=== PATIENT | female | born 1955 | race Caucasian/White ===

== ENCOUNTER 2016-10-14 08:18 | Day surgery (SDC) | payer OTHER ==
[~2016-10-14] VITALS: Ht 162.6 cm; Wt 68.0 kg
[~2016-10-14 08:18] MED LIST: 0.9% Sodium Chloride 1,000 ML IV SCH; ALBU8.5H2 INHALATION; ASPI-973 PO; ATEN25TA PO; CALC-243 PO; CHOL100043 PO; CITA40TA13 PO; DESO15CR25 TOPICAL; FENO160T14 PO; KETACONAZOLE TOPICAL; LOSA25TA21 PO; LOVA40TA PO; MIRA50TA PO; MULT-1018 PO; OMEG-38 PO; SYMINH INHALATION; Sodium Chloride LOK Flush 10 mL Syringe IV PRN; TIOT18CA3 IH; UBID100C PO; fentaNYL-PF 50 mCg/mL 2 mL Inj IVPUSH PRN
[2016-10-14 08:31] VITALS: BP 116/83; PULSE 100; RESP 17; O2SAT 94
[2016-10-14] MEDS ORDERED: fentaNYL-PF 50 mCg/mL 2 mL Inj ONE (08:48)
[2016-10-14] MEDS ORDERED: Lactated Ringer's 1,000 ML IV ONE (08:49)
[2016-10-14] MEDS ORDERED: 0.9% Sodium Chloride 1,000 ML ONE (08:49)
[2016-10-14] MEDS ORDERED: Sodium Chloride LOK Flush 10 mL Syringe IV PRN (09:05)
[2016-10-14] MEDS ORDERED: fentaNYL-PF 50 mCg/mL 2 mL Inj IVPUSH PRN (09:05)
[2016-10-14] MEDS ORDERED: 0.9% Sodium Chloride 1,000 ML IV PRN (09:05)
[2016-10-14 09:34] VITALS: BP 117/71; PULSE 83; RESP 14; O2SAT 93
[2016-10-14 09:44] VITALS: BP 105/70; PULSE 81; RESP 14; O2SAT 93
--- NOTE | 2016-10-14 09:49 | ENDO ---
[address] [address] ENDOSCOPY PROCEDURE PATIENT: LUIS GREGORY : 1955 MR#: [id number] ADMIT: 10/14/2016 JOB ID: [id number] DATE: 10/14/2016 PREOPERATIVE DIAGNOSIS(ES): Rectal bleeding. POSTOPERATIVE DIAGNOSIS(ES): 1. Pedunculated cecal polyp. 2. A 2-3 mm ascending colon polyp. 3. A 1-2 mm sigmoid colon polyp. 4. Localized diverticulosis to hepatic flexure. PROCEDURE: Colonoscopy to cecum with snare polypectomy with cautery and cold forceps polypectomy x2. SURGEON: Chago Augustine MD. INDICATIONS: A 61-year-old female with rectal bleeding has elected to proceed with a colonoscopy. FINDINGS: She had a good prep. The scope was advanced to the cecum. It was withdrawn over 9 minutes 51 seconds. In the cecum, a pedunculated polyp measuring 6-7 mm was identified. It was removed completely taking the stalk and retrieved. In the ascending colon was a 2-3 mm polyp removed with cold forceps and in the sigmoid colon a 1-2 mm polyp removed with cold forceps. Interestingly she had isolated diverticulosis at hepatic flexure. Retroflexed views of the rectum revealed normal appearing internal hemorrhoids. DESCRIPTION OF PROCEDURE: The procedure and sedation plan was discussed with the patient and nursing staff. A procedural time-out was held. She received 5 mg of Versed, 125 mcg of fentanyl. A digital rectal examination was performed and the PCF H 180 AL video colonoscope was passed to the cecum, withdrawn over 9 minutes 51 seconds with results and procedures as discussed above. There are no apparent complications. The patient tolerated the procedure well. IMPRESSION: 1. Three colon polyps as listed above. 2. Isolated diverticulosis to the hepatic flexure. PLAN: She will return to my office for further discussion of her rectal bleeding. She will need a colonoscopy in five years.
[2016-10-14 09:52] VITALS: BP 137/68; PULSE 93; RESP 16; O2SAT 91
[2016-10-14 10:02] VITALS: BP 137/68; PULSE 86; RESP 16; O2SAT 91
--- NOTE | 2016-10-15 11:44 | PATH ---
SURGICAL PATHOLOGY Attending Physician:Annie Lugo CASE STATUS: Signed Out PATIENT NAME: LUIS GREGORY PID: [id number] : 1955 DATE COLLECTED:10/14/2016 17:03 SPECIMEN: 1: Colon, Biopsy 2: Colon, Biopsy 3: Colon, Biopsy CLINICAL HISTORY: A: CECAL POLYP B: ASCENDING POLYP C: SIGMOID POLYP FINAL DIAGNOSIS: A. Cecal Polyp: Tubular adenoma involving single biopsy fragment. B. Ascending Colon Polyp: Polypoid-shaped fragment of colon mucosa associated with prominent mucosal lymphoid aggregate. Negative for dysplasia and malignancy. C. 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 ICD10: D12.0 GROSS DESCRIPTION: The specimen is received in three formalin filled containers labeled with the patient's name. 1). The specimen is sublabeled "cecal polyp" and consists of 2 portions of tissue which aggregate to 0.6 x 0.6 x 0.4 CM. The specimen is entirely submitted in cassette 1A. 2). The specimen is sublabeled "ascending polyp" and consists of a 0.3 x 0.3 x 0.2 CM portion of tissue which is entirely submitted in cassette 2A. 3). The specimen is labeled "#3 (source on container illegible)" and consists of a 0.4 x 0.3 x 0.2 CM portion of tissue which is entirely submitted in cassette 3A. 10/14/2016 [facility] ICD-9 CODES: CPT CODES: 1: 63401 2: 22691 3: 96458 Electronically Signed Out Evin Momin MD [facility] [address], [place] [address] Technical component performed at [facility], [facility] [address], [place], [address]
== END 2016-10-14 23:59 | disposition home or self-care (01) ==
LOC: END 08:18
PROVIDERS: ATTEND Surgery
DX: D12.0 Benign neoplasm of cecum (principal); D12.2 Benign neoplasm of ascending colon; D12.5 Benign neoplasm of sigmoid colon; K57.30 Diverticulosis of large intestine without perforation or abscess without bleeding; K62.5 Hemorrhage of anus and rectum; F17.210 Nicotine dependence, cigarettes, uncomplicated; Z79.82 Long term (current) use of aspirin; Z79.899 Other long term (current) drug therapy
CPT/HCPCS: 45380; 45385; 99153; G0500; J2250; J7030; J7120

== ENCOUNTER 2016-11-12 09:56 | Emergency (ER) | payer OTHER ==
[~2016-11-12] VITALS: Ht 165.1 cm; Wt 70.0 kg
[~2016-11-12 09:56] MED LIST changes: -0.9% Sodium Chloride 1,000 ML IV SCH; -MIRA50TA PO; -Sodium Chloride LOK Flush 10 mL Syringe IV PRN; -fentaNYL-PF 50 mCg/mL 2 mL Inj IVPUSH PRN
[2016-11-12 10:14] VITALS: BP 116/84; PULSE 75; RESP 16; O2SAT 97
--- NOTE | 2016-11-12 11:21 | ED.REPORT ---
HPI-Hip/Pelvis Prob/Inj Date of Service Nov 12, 2016 ED Provider: Lida Doll History of Present Illness: pain in left hip ongoing for 3 weeks. saw chiro, no help. primary care is karin wilson, x-ray shows mild arthertis. worse with walking.supposed to be seen next Tuesday for plan. given vicodin and gapabentin and mobic, pain reduced with meds but does return 11/26 then 06/28. no injury Nursing Notes Stated Complaint: LEFT HIP PAIN Chief Complaint: General Complaint Nursing Notes Reviewed: Yes Allergies: Coded Allergies: Sulfa (Sulfonamide Antibiotics) (Verified Allergy, Unknown, UNKNOWN, ) hydrochlorothiazide (Verified Allergy, Unknown, UNKNOWN, 11/07/15) triamterene (Verified Allergy, Unknown, UNKNOWN, 11/07/15) atorvastatin (Verified Adverse Reaction, Severe, muscle aches, 11/07/15) rosuvastatin calcium (Verified Adverse Reaction, Severe, muscle aches, ) simvastatin (Verified Adverse Reaction, Severe, muscle aches, 11/07/15) lisinopril (Verified Adverse Reaction, Intermediate, cough, muscle aches, abd pain, 11/07/15) Scheduled Albuterol HFA (Proair HFA) 8.5 Gm Hfa.aer.ad 2 PUFFS INHALATION Q4H Aspirin (Aspirin) 81 Mg Tablet 81 MG PO DAILY Atenolol (Atenolol) 25 Mg Tablet 25 MG PO DAILY Budesonide/Formoterol 160-4.5 mcg Inh (Symbicort 160-4.5 mcg Inh) 120 Puff Inhaler 2 PUFF INHALATION BID Calcium Carbonate/Vitamin D3 (Calcium 600 + Vit D Tablet) 1 Each Tablet 1 EACH PO DAILY Cholecalciferol (Vitamin D3) (Vitamin D) 1,000 Unit Tablet 2,000 UNIT PO DAILY Citalopram (Citalopram) 40 Mg Tablet 40 MG PO DAILY Fenofibrate (Fenofibrate) 160 Mg Tablet 160 MG PO DAILY Losartan Potassium (Losartan Potassium) 25 Mg Tablet 25 MG PO DAILY Lovastatin (Lovastatin) 40 Mg Tablet 80 MG PO HS Multivitamin (Multi Vitamin Daily) 1 Each Tablet 1 EACH PO DAILY [place]-3/Dha/Epa/Fish Oil (Fish Oil 1,000 mg Softgel) 1 Each Capsule 1-2 EACH PO DAILY Tiotropium [place] (Spiriva) 18 Mcg Cap.w.dev 18 MCG IH DAILY Ubidecarenone (Coenzyme Q10) 100 Mg Capsule 100 MG PO DAILY Scheduled PRN ([ketaconazole]) TOPICAL PRN PRN PRN rash shampoo prn/2% cream prn Desonide (Desonide Cream) 15 Gm Cream..g. 1 APPLIC TOPICAL BID PRN PRN prn mix w/ ketaconazole cream General Time Seen by Provider: 11:21 Chief Complaint Hip injury left Past Medical History Past Medical History Notes: meds are atenolol 25mg lovastatin 80mg, fenofibrate 160 mg, nicacin 1000 mg, citalopram 40 mg, losartan 25 mg, asa 81 mg allergies silfa, hctz, crestor, lisinopril, simvastatin Past Medical History Reports: Hypertension, Denies: Asthma Denies: Atrial fibrillation, Atrial flutter Past Surgical History denies Smoking History Current Every Day Smoker (1 pack a day for 45 years) Social History Alcohol Use: "Social" Drug Use: Denies drug use Occupation lives by self, work at [employer] 11/12/2016 Ambulatory Status Independent Review of Systems Basic Review of Systems Eyes: Vision NL, No discharge Respiratory: No shortness of breath, No cough, No wheeze Cardiovascular: No chest pain, No dyspnea on exertion, No orthopnea, No parox noct dyspnea, No palpitations Psychiatric: Normal thought content Physical Exam Initial Vital Signs Vital Signs (First) Date Time Temp Pulse Resp B/P Pulse Ox O2 Delivery O2 Flow Rate FiO2 11/12/16 10:14 37.2 75 16 116/84 97 Room Air Initial VS: Reviewed, Vital signs normal General/Constitutional: Well-developed, Well-nourished Head / Eyes: Atraumatic, Normocephalic, PERRL ENT: Mucous membranes moist, Conjunctiva normal, No scleral icterus Neck: Supple, Non-tender, Full range of motion Respiratory: Breath sounds normal, Clear to auscultation, No respiratory distress Cardiovascular: Regular rate & rhythm, Heart sounds normal, Intact distal pulses Abdomen / GI: Soft, Non-tender, No guarding, No rebound, No distention Back: No CVA tenderness Lymphatic: No lymphadenopathy Upper Extremities: Vascular intact, Neuro intact, No swelling, No tenderness Skin: Warm, Dry, No cyanosis Neurologic: Alert, Oriented, Nonfocal Psychiatric: Mood/affect normal, Behavior normal, Normal thought content no pain with lateral rotation of left hip, pain with medial rotation. sensation intact. no rash noted General/Constitutional: Awake, Alert, No acute distress, Well appearing, Well developed Respiratory / Chest: Atraumatic, Breath sounds NL, Breath sounds = bilat, No respiratory distress Cardiovascular: Heart rate NL, Regular rhythm, Heart sounds NL, No gallop Interpretation & Diagnostics Lab Results Interpretation Result Diagram: 11/12/16 1205 11/12/16 1205 Test 11/12/16 11:45 11/12/16 12:05 Hold Peoples Top Tube Received (Received) White Blood Count 9.0th/mm3 (3.8-10.1) Red Blood Count 4.65mil/mm3 (3.90-5.20) Hemoglobin 14.5g/dL (12.0-15.6) Hematocrit 42.4% (35.0-46.0) Mean Corpuscular Volume 91.2fL (81-100) Mean Corpuscular Hemoglobin 31.2pg (27.0-35.0) Mean Corpuscular Hemoglobin Concent 34.2% (32.0-37.0) Red Cell Distribution Width 12.8% (12.3-15.4) Platelet Count 379bil/L (150-400) Neutrophils (%) (Auto) 55.6% (40-74) Lymphocytes (%) (Auto) 32.4% (14-46) Monocytes (%) (Auto) 8.8% (4-12) Eosinophils (%) (Auto) 2.7% (0-5) Basophils (%) (Auto) 0.4% (0-3) Erythrocyte Sedimentation Rate 10mm/hr (0-40) Sodium Level 139mEq/L (134-144) Potassium Level 4.1mEq/L (3.5-5.2) Chloride Level 100mEq/L (97-108) Carbon Dioxide Level 24mmol/L (18-29) Blood Urea Nitrogen 18mg/dL (8-27) Creatinine 0.47mg/dL (0.57-1.00) Estimat Glomerular Filtration Rate 192mL/min (>59) Glucose Level 101mg/dL (60-99) Calcium Level 9.6mg/dL (8.5-10.1) Total Bilirubin 0.3mg/dL (0.0-1.2) Aspartate Amino Transf (AST/SGOT) 24U/L (0-50) Alanine Aminotransferase (ALT/SGPT) 20U/L (0-32) Alkaline Phosphatase 51U/L (25-165) C-Reactive Protein 0.1mg/dL (0.0-0.5) Total Protein 7.8g/dL (6.4-8.4) Albumin 4.6g/dL (3.4-5.0) Re-Eval/Medical Decision Med Decision/Clinical Course 61 year old female with no injury presents for left hip and low back pain.. No evidence of avascular necorisis, compartment syndrome SI joint dsyfunction. X-rays taken earlier this week are normal. Discussed with Dr. Cano may need MRI of lower back. Dr. Cano to arrange and will schedule follow up. Dr. Cano's office to call patient. REturn to ER precautions given.Dr. Cano agrees with stoping mobic and doing a short course of prednisone. Differential Diagnosis: Negative: Arthritis, septic, Avascular nec, fem head, Compartment syndrome Counseled Regarding: Diagnosis, When/why to return to ED Discharge & Departure Impression: Primary Impression: Hip pain, left Additional Impression: Low back pain Chronicity: acute Back pain laterality: bilateral Sciatica presence: with sciatica Disposition: Home Patient Instructions: Acute Low Back Pain (ED), Sciatica (ED) Additional Instructions: Your x-rays were basically normal. Your cbc is normal, chemistry panel is pending at this time. If anything returns abnormal, we will call you. I spoke with Dr. Cano and their office will contact you either today or on Tuesday with a time for the MRI. In the meantime, continue with the medication that you were given, except stop the mobic. Start prednisone 60 mg daily for 3 days, then 4o mg daily for 3 days, then 20 mg daily for 3 days then 10 mg daily for 3 days. Start pantoprazole while taking the prednisone. Use ice 15 minutes off and 15 minutes on for 4 days. Must have a cloth barrier between your skin and the ice. Gentle movement is best. Do not stay in bed or sit in a chair for an extended period of time Referrals: Karin Wilson (PCP) EDSupervising Provider for APC: Cailin Ortiz MD copies to: Karin Wilson Sue ARNP Nov 12, 2016 11:21
[2016-11-12] MEDS ORDERED: Ketorolac 30 mg/mL 2 mL Inj IM ONE (11:45)
[2016-11-12 12:14] LABS: BASOPHILS % (AUTO) 0.4 % (0-3); EOSINOPHILS % (AUTO) 2.7 % (0-5); MONOCYTES % (AUTO) 8.8 % (4-12); Mean Corpuscular Hemoglobin 31.2 pg (27.0-35.0); Mean Corpuscular Volume 91.2 fL (81-100); NEUTROPHILS % (AUTO) 55.6 % (40-74); Platelet Count 379 bil/L (150-400)
[2016-11-12 12:36] LABS: ERYTHROCYTE SEDIMENTATION RATE 10 mm/hr (0-40)
== END 2016-11-12 13:00 | disposition home or self-care (01) ==
LOC: SED 09:56
DX: M25.552 Pain in left hip (principal); M54.41 Lumbago with sciatica, right side; M54.42 Lumbago with sciatica, left side; I10 Essential (primary) hypertension; M19.90 Unspecified osteoarthritis, unspecified site; E78.5 Hyperlipidemia, unspecified; F17.200 Nicotine dependence, unspecified, uncomplicated; Z79.82 Long term (current) use of aspirin; Z88.2 Allergy status to sulfonamides; Z88.8 Allergy status to other drugs, medicaments and biological substances
CPT/HCPCS: 36415; 80053; 85025; 85651; 86140; 96372; 99284; J1885